=== PATIENT | female | born 1945 | race Caucasian/White ===

== ENCOUNTER 2020-07-05 13:49 | Outpatient (REF) | payer MEDICARE, SELFPAY | END 2020-07-05 13:50 | disposition home or self-care (01) | LOC: HO.LAB 13:49 | PROVIDERS: PCP Internal Medicine; Visit Provider Internal Medicine | DX: Z20.828 Contact with and (suspected) exposure to other viral communicable diseases (principal) | CPT/HCPCS: C9803; U0003 ==

== ENCOUNTER 2020-07-07 20:52 | Inpatient (IN) | payer MEDICARE, SELFPAY ==
--- NOTE | 2020-07-07 20:56 | CT_ITS ---
EXAMINATION: CT HEAD WITHOUT CONTRAST (STROKE PROTOCOL) CLINICAL INFORMATION: Stroke protocol. Altered mental status COMPARISON: CT head 07/11/2019 TECHNIQUE: Contiguous axial imaging was performed from the skull base to vertex without intravenous administration of contrast. This CT examination was performed using dose optimization techniques as appropriate, variously including the following: *Automated exposure control *Adjustment of mA and/or kV according to patient size (this includes techniques or standardized protocols for targeted exams where dose is matched to indication/reason for exam; i.e. extremities or head) *Use of iterative reconstruction technique DLP: 553 mGy-cm FINDINGS: Redemonstration of the low attenuating fluid in the white matter in the left parietal-occipital lobe unchanged since CAT scan of 2019. This does not cause midline shift. There is chronic atrophy with prominence of the ventricles and sulci as well as hypodensity the periventricular white matter chronic small vessel ischemic disease. Extra-axial meningioma given demonstrated in the left frontal parietal region measuring 1.4 cm. This is unchanged since CAT scan of 2019. There is a second meningioma faintly seen axial image 31 series 2 the left parietal area measuring about 4 mm. This is unchanged since 2019. No extra-axial fluid collection. Complete opacification of left sphenoid sinus. Mastoid air cells and middle ear cavities are normally aerated. CT/CT head for stroke IMPRESSION: 1. No acute abnormality. 2. Redemonstration of low attenuating fluid in the white matter track left parietal-occipital lobe unchanged since CAT scan of 02/05/2019. 3. No significant change of the 2 left-sided meningiomas since 02/05/2019. 4. Complete opacification of the left sphenoid sinus. This critical result was discussed with Yady Campos MD on 07/07/2020, 9:15 PM. It was ascertained that the content and urgency of the report was understood at the time of direct communication.
--- NOTE | 2020-07-07 20:58 | ED.WEAKNESS ---
HPI - Weakness General Chief complaint: Neuro Symptoms/Deficit Stated complaint: stroke alert Time Seen by Provider: 07/07/20 20:56 Source: family and EMS Mode of arrival: EMS History of Present Illness HPI Narrative: This is a 75-year-old female who is brought in as a stroke alert with last known well approximately this evening when family noted that patient became ?unresponsive? as per EMS and now is stating that patient is at ?baseline?. Please see more detailed course in that section. Otherwise, patient is a poor historian. Related Data Home Medications Medication Instructions Recorded Confirmed acetaminophen 650 mg PO Q6H PRN 07/07/20 07/07/20 atorvastatin 20 mg PO DAILY 07/07/20 07/07/20 codeine-guaifenesin 5 ml PO 07/07/20 Allergies Allergy/AdvReac Type Severity Reaction Status Date / Time Iodinated Contrast Media Allergy Unknown ANAPHYLAXIS Verified 07/07/20 21:12 [IV Dye, Iodine Containing] From Taxol Allergy Severe DIFFICULTY Uncoded 07/07/20 21:12 BREATHING From Benadryl Allergy Unknown AGITATION Uncoded 07/07/20 21:12 Review of Systems Review of Systems: Yes Unobtainable due to mental condition PMFSH Past Medical History Source: nursing notes reviewed Medical History Brain cancer Herniated disc High cholesterol HTN (hypertension) Lung cancer TIA (transient ischemic attack) Social History Social History Alcohol intake: never Smoking Status: Never smoker Use of substances other than those prescribed or required for medical reasons: No Advance Directives: No Advance Directives Information Provided: No Physical Exam Vital Signs: Vital Signs: Last Vital Signs Temp 98.9 F 07/08/20 00:00 Pulse 86 07/08/20 06:17 Resp 18 07/08/20 06:17 BP 131/54 L 07/08/20 06:17 Pulse Ox 97 07/08/20 06:17 Body Mass Index 19.8 VITAL SIGNS: Reviewed. GENERAL: Cachectic, chronically ill, in no acute distress. HEAD: Normocephalic/atraumatic, EYES: PERRLA, EOMI intact without pain, no nystagmus/pallor/icterus noted EARS: Ext canals without abnormality, TMs non-bulging and non-erythematous NOSE: Nares patent bilateral OROPHARYNX: no oral lesions noted, posterior pharynx clear and non-erythematous without noted tonsillar enlargement/erythema/exudates NECK: Supple, no adenopathy LUNGS: Normal breath sounds. No adventitious sounds or accessory muscle use. SpO2<> CARDIOVASCULAR: Regular rate and rhythm without noted murmurs, no JVD or lower extremity edema. ABDOMEN: Soft, non-tender, non-distended with bowel sounds. No rigidity. No guarding. No palpable masses or hernias noted MUSCULOSKELETAL: No tenderness, deformities, or effusions noted on gross inspection. EXTREMITIES: No cyanosis, clubbing or edema. SKIN: Inspection of the skin reveals no rashes, ulcerations, jaundice, pallor, or petechiae. NEUROLOGIC: Alert, please see NIH stroke scale. Rt arm drift and weakness at baseline, speech is slow but no dyarthria NIH Stroke Scale Internal: Other Level of Consciousness: Alert Level of Consciousness Questions: Answers neither question correctly Level of Consciousness Commands: Performs one task correctly Best Gaze: Partial gaze palsy Visual: No visual loss Facial Palsy: Normal Motor Arm (Right): Some effort against gravity Motor Arm (Left): Some effort against gravity Motor Leg (Right): Some effort against gravity Motor Leg (Left): Some effort against gravity Limb Ataxia: Absent Sensory: Normal Best Language: Mild to moderate aphasia Dysarthia: Normal Extinction and Inattention: No abnormality Score: 13 Course Course Course Narrative: This is a 75-year-old female with history and clinical presentation most concerning for possible seizure-like activity but will rule out infectious, anemia etiologies. Review of all investigations is negative for evidence of infection, anemia, but does show evidence of mild dehydration and therefore the decision was made to proceed with the Keppra as discussed with Neurology as well as provide a 500cc bolus of IVF . This case was discussed with inpatient hospitalist team who is agreeable for admission. Of note despite COVID-19 being negative there are concerning findings on the chest x-ray that will be followed up with a chest CT. On review of CT scan no evidence for the support infiltrates and the results were updated to the inpatient hospitalist team. Reevaluation(s) Reevaluation #1: Discussed CT noncontrast with Radiology at [facility] and they describe that there is nothing acute, there are chronic changes as described previously in 2019 with meningiomas and chronic edema that is unchanged. Time: 21:10 Reevaluation #2: I discussed the patient's condition further with the son, Kevin ([phone]), who states that at baseline patient has slow speech, slow to respond, and that they have had concerns about her being slumped over approximately 3 times over the past couple of days and that she has a significant history for lung CA as well as brain CA. Time: 21:12 Reevaluation #3: I discussed the patient with her daughter Devi ([phone]) and she states that patient has had 2 episodes over the past week and a half of an inability to ?hold herself up? and then she notes that tonight she was laying on her back and was not able to respond to the daughter and she states that that started at 4:00 p.m.. The daughter states that at approximately 8:00 p.m. she decided to move the patient to the bed and became concerned because the patient was not able to lift either 1 of her arms to place him around her. And she states her mother just appeared ?not there?. Time: 21:20 Additional Reevaluation(s): 2124: I spoke with Dr. Byrd who agrees that this does not sound like a stroke, but possibly seizure activity. Discussed with him ruling out infections or alternative etiologies and then if negative moving forward with Keppra(initial 500mg and then 250mg BID). He agrees with that plan. Patient to be admitted. MDM - Weakness Lab Data Result diagrams: 07/07/20 21:40 07/07/20 21:28 Labs: Lab Results 07/07/20 07/07/20 07/07/20 Range/Units 20:58 20:59 21:28 WBC (4.8-10.8) X10*3/uL RBC (4.20-5.50) X10*6/uL Hgb (12.0-16.0) g/dl Hct (37-47) % MCV (80-98) fL MCH (27.0-33.0) pg MCHC (31.0-35.0) g/dl RDW (11.0-16.0) % Plt Count (160-400) X10*3/uL MPV (9.4-12.3) fL Immature Gran % (Auto) (0.0-0.4) % Neut % (Auto) (45-73) % Lymph % (Auto) (20-40) % Hudson % (Auto) (2-11) % Eos % (Auto) (0-4) % Baso % (Auto) (0-2) % Lymph # (Auto) (1.2-4.9) X10*3/uL Hudson # (Auto) (0.1-1.2) X10*3/uL Eos # (Auto) (0.0-0.4) X10*3/uL Baso # (Auto) (0.0-0.2) X10*3/uL Abs Immat Gran (auto) (0.00-0.03) X10*3/uL Absolute Neuts (auto) (2.0-8.3) X10*3/uL Absolute Nucleated RBC (0.0-0.012) X10*3/uL Nucleated RBC % (auto) (0.0-0.2) /100WBC PT (10.8-13.0) SEC Whole Blood PT 11.3 (11.1-13.5) sec INR (0.9-1.1) Whole Blood INR 0.9 (0.9-1.1) APTT (24.1-38.0) SEC Sodium (135-145) mmol/L Potassium (3.3-5.1) mmol/l Chloride (96-108) mmol/L Carbon Dioxide (22-29) mmol/L Anion Gap (12-20) BUN (9-16) mg/dL Creatinine (0.5-1.4) mg/dL Estim Creat Clear Calc Estimated GFR POC Glucose 102 (60-115) mg/dL Random Glucose (60-115) mg/dL Lactic Acid (0.5-2.0) mmol/L Calcium (8.4-10.2) mg/dL Total Bilirubin (0.0-1.0) mg/dL AST (5-31) U/L ALT (0-31) U/L Alkaline Phosphatase (39-117) U/L Troponin I High Sens (<3.5-17.0) ng/L Total Protein (6.5-8.0) g/dL Albumin (3.5-5.0) g/dL TSH 0.29 L (0.32-4.0) mIU/mL Free T4 0.96 (0.71-1.85) ng/dL Urine Color Urine Appearance Urine pH (5.0-8.0) Ur Specific Hope (1.005-1.025) Urine Protein (NEG-TRACE) MG/DL Urine Glucose (UA) (NEG) MG/DL Urine Ketones (NEG) MG/DL Urine Blood (NEG) Urine Nitrite (NEG) Ur Leukocyte Esterase (NEG) COVID-19 (ROBERTO) (Negative) COVID-19 Clin Com 07/07/20 07/07/20 07/07/20 Range/Units 21:28 21:28 21:28 WBC (4.8-10.8) X10*3/uL RBC (4.20-5.50) X10*6/uL Hgb (12.0-16.0) g/dl Hct (37-47) % MCV (80-98) fL MCH (27.0-33.0) pg MCHC (31.0-35.0) g/dl RDW (11.0-16.0) % Plt Count (160-400) X10*3/uL MPV (9.4-12.3) fL Immature Gran % (Auto) (0.0-0.4) % Neut % (Auto) (45-73) % Lymph % (Auto) (20-40) % Hudson % (Auto) (2-11) % Eos % (Auto) (0-4) % Baso % (Auto) (0-2) % Lymph # (Auto) (1.2-4.9) X10*3/uL Hudson # (Auto) (0.1-1.2) X10*3/uL Eos # (Auto) (0.0-0.4) X10*3/uL Baso # (Auto) (0.0-0.2) X10*3/uL Abs Immat Gran (auto) (0.00-0.03) X10*3/uL Absolute Neuts (auto) (2.0-8.3) X10*3/uL Absolute Nucleated RBC (0.0-0.012) X10*3/uL Nucleated RBC % (auto) (0.0-0.2) /100WBC PT (10.8-13.0) SEC Whole Blood PT (11.1-13.5) sec INR (0.9-1.1) Whole Blood INR (0.9-1.1) APTT (24.1-38.0) SEC Sodium 140 (135-145) mmol/L Potassium 5.1 (3.3-5.1) mmol/l Chloride 103 (96-108) mmol/L Carbon Dioxide 28 (22-29) mmol/L Anion Gap 14 (12-20) BUN 24 H (9-16) mg/dL Creatinine 1.07 (0.5-1.4) mg/dL Estim Creat Clear Calc 41.1 Estimated GFR 50 POC Glucose (60-115) mg/dL Random Glucose 103 (60-115) mg/dL Lactic Acid 1.7 (0.5-2.0) mmol/L Calcium 9.3 (8.4-10.2) mg/dL Total Bilirubin 0.3 (0.0-1.0) mg/dL AST 20 (5-31) U/L ALT 18 (0-31) U/L Alkaline Phosphatase 99 (39-117) U/L Troponin I High Sens < 3.5 (<3.5-17.0) ng/L Total Protein 7.5 (6.5-8.0) g/dL Albumin 4.0 (3.5-5.0) g/dL TSH (0.32-4.0) mIU/mL Free T4 (0.71-1.85) ng/dL Urine Color Urine Appearance Urine pH (5.0-8.0) Ur Specific Hope (1.005-1.025) Urine Protein (NEG-TRACE) MG/DL Urine Glucose (UA) (NEG) MG/DL Urine Ketones (NEG) MG/DL Urine Blood (NEG) Urine Nitrite (NEG) Ur Leukocyte Esterase (NEG) COVID-19 (ROBERTO) (Negative) COVID-19 Clin Com 07/07/20 07/07/20 07/07/20 Range/Units 21:28 21:40 21:47 WBC 10.6 (4.8-10.8) X10*3/uL RBC 4.42 (4.20-5.50) X10*6/uL Hgb 14.0 (12.0-16.0) g/dl Hct 44.0 (37-47) % MCV 99.5 H (80-98) fL MCH 31.7 (27.0-33.0) pg MCHC 31.8 (31.0-35.0) g/dl RDW 13.0 (11.0-16.0) % Plt Count 387 (160-400) X10*3/uL MPV 10.0 (9.4-12.3) fL Immature Gran % (Auto) 0.6 H (0.0-0.4) % Neut % (Auto) 79.8 H (45-73) % Lymph % (Auto) 9.6 L (20-40) % Hudson % (Auto) 8.8 (2-11) % Eos % (Auto) 0.8 (0-4) % Baso % (Auto) 0.4 (0-2) % Lymph # (Auto) 1.0 L (1.2-4.9) X10*3/uL Hudson # (Auto) 0.9 (0.1-1.2) X10*3/uL Eos # (Auto) 0.1 (0.0-0.4) X10*3/uL Baso # (Auto) 0.0 (0.0-0.2) X10*3/uL Abs Immat Gran (auto) 0.06 H (0.00-0.03) X10*3/uL Absolute Neuts (auto) 8.5 H (2.0-8.3) X10*3/uL Absolute Nucleated RBC 0.000 (0.0-0.012) X10*3/uL Nucleated RBC % (auto) 0.0 (0.0-0.2) /100WBC PT 12.1 (10.8-13.0) SEC Whole Blood PT (11.1-13.5) sec INR 1.0 (0.9-1.1) Whole Blood INR (0.9-1.1) APTT 34.4 (24.1-38.0) SEC Sodium (135-145) mmol/L Potassium (3.3-5.1) mmol/l Chloride (96-108) mmol/L Carbon Dioxide (22-29) mmol/L Anion Gap (12-20) BUN (9-16) mg/dL Creatinine (0.5-1.4) mg/dL Estim Creat Clear Calc Estimated GFR POC Glucose (60-115) mg/dL Random Glucose (60-115) mg/dL Lactic Acid (0.5-2.0) mmol/L Calcium (8.4-10.2) mg/dL Total Bilirubin (0.0-1.0) mg/dL AST (5-31) U/L ALT (0-31) U/L Alkaline Phosphatase (39-117) U/L Troponin I High Sens (<3.5-17.0) ng/L Total Protein (6.5-8.0) g/dL Albumin (3.5-5.0) g/dL TSH (0.32-4.0) mIU/mL Free T4 (0.71-1.85) ng/dL Urine Color YELLOW Urine Appearance CLEAR Urine pH 5.5 (5.0-8.0) Ur Specific Hope >= 1.030 H (1.005-1.025) Urine Protein NEG (NEG-TRACE) MG/DL Urine Glucose (UA) NEG (NEG) MG/DL Urine Ketones 5 (NEG) MG/DL Urine Blood NEG (NEG) Urine Nitrite NEG (NEG) Ur Leukocyte Esterase NEG (NEG) COVID-19 (ROBERTO) (Negative) COVID-19 Clin Com 07/07/20 Range/Units 21:47 WBC (4.8-10.8) X10*3/uL RBC (4.20-5.50) X10*6/uL Hgb (12.0-16.0) g/dl Hct (37-47) % MCV (80-98) fL MCH (27.0-33.0) pg MCHC (31.0-35.0) g/dl RDW (11.0-16.0) % Plt Count (160-400) X10*3/uL MPV (9.4-12.3) fL Immature Gran % (Auto) (0.0-0.4) % Neut % (Auto) (45-73) % Lymph % (Auto) (20-40) % Hudson % (Auto) (2-11) % Eos % (Auto) (0-4) % Baso % (Auto) (0-2) % Lymph # (Auto) (1.2-4.9) X10*3/uL Hudson # (Auto) (0.1-1.2) X10*3/uL Eos # (Auto) (0.0-0.4) X10*3/uL Baso # (Auto) (0.0-0.2) X10*3/uL Abs Immat Gran (auto) (0.00-0.03) X10*3/uL Absolute Neuts (auto) (2.0-8.3) X10*3/uL Absolute Nucleated RBC (0.0-0.012) X10*3/uL Nucleated RBC % (auto) (0.0-0.2) /100WBC PT (10.8-13.0) SEC Whole Blood PT (11.1-13.5) sec INR (0.9-1.1) Whole Blood INR (0.9-1.1) APTT (24.1-38.0) SEC Sodium (135-145) mmol/L Potassium (3.3-5.1) mmol/l Chloride (96-108) mmol/L Carbon Dioxide (22-29) mmol/L Anion Gap (12-20) BUN (9-16) mg/dL Creatinine (0.5-1.4) mg/dL Estim Creat Clear Calc Estimated GFR POC Glucose (60-115) mg/dL Random Glucose (60-115) mg/dL Lactic Acid (0.5-2.0) mmol/L Calcium (8.4-10.2) mg/dL Total Bilirubin (0.0-1.0) mg/dL AST (5-31) U/L ALT (0-31) U/L Alkaline Phosphatase (39-117) U/L Troponin I High Sens (<3.5-17.0) ng/L Total Protein (6.5-8.0) g/dL Albumin (3.5-5.0) g/dL TSH (0.32-4.0) mIU/mL Free T4 (0.71-1.85) ng/dL Urine Color Urine Appearance Urine pH (5.0-8.0) Ur Specific Hope (1.005-1.025) Urine Protein (NEG-TRACE) MG/DL Urine Glucose (UA) (NEG) MG/DL Urine Ketones (NEG) MG/DL Urine Blood (NEG) Urine Nitrite (NEG) Ur Leukocyte Esterase (NEG) COVID-19 (ROBERTO) Negative (Negative) COVID-19 Clin Com See Note ECG Data Attestation: I personally reviewed and interpreted this ECG as follows: Prior ECG tracings: available for review (07/11/2019 no acute changes in comparison) Interpretation: Sinus tachycardia, HR-113, no evidence of acute ischemia, LBB unchanged, GA/QTC are within normal limits. Discharge Plan Discharge Clinical Impression: Neurological deficit, transient, Seizure Patient Disposition: Admitted As Inpatient
[2020-07-07 21:03] LABS: Prothrombin Time Whole Bld POC 11.3 sec (11.1-13.5); ~PT, ~INR - Anti Coag Clinic 0.9 (0.9-1.1)
[2020-07-07 21:03] LABS: Glucose, Whole Blood 102 mg/dL (60-115)
[2020-07-07 21:07] VITALS: BP 135/46; PULSE 116; RESP 17; TEMP 36.7; O2SAT 95; BMI 19.8
--- NOTE | 2020-07-07 21:19 | ECG_ITS ---
Test Reason : ?STROKE Blood Pressure : / mmHG Vent. Rate : 113 BPM Atrial Rate : 113 BPM P-R Int : 166 ms QRS Dur : 124 ms QT Int : 344 ms P-R-T Axes : 048 005 122 degrees QTc Int : 471 ms Sinus tachycardia Possible Left atrial enlargement Left bundle branch block Abnormal ECG When compared with ECG of 11-JUL-2019 23:44, No significant changes seen Referred By: Yady Campos Electronically Signed By:ARCHANA JOYA
--- NOTE | 2020-07-07 21:19 | XR_ITS ---
EXAMINATION: XR CHEST CLINICAL INFORMATION: Cough. COMPARISON: Multiple previous chest imaging studies with the last chest x-ray dated 07/20/2019. Chest CT of 11/05/2016. TECHNIQUE: Frontal view of the chest was obtained. FINDINGS: Cardiomediastinal silhouette is unchanged. The lungs are mildly hypoexpanded with bronchovascular crowding. Stable mild elevation of the right hemidiaphragm. Multifocal scattered streaky and ground-glass opacities are suspected. No dense lobar consolidation. No evidence of significant pleural effusions, pulmonary edema or pneumothorax. Regional skeleton is intact. Vertebroplasty changes in the mid thoracic vertebrae are again noted. XR/XR chest 1V IMPRESSION: Mildly hypoexpanded lungs with bronchovascular crowding. Scattered streaky and faint ground-glass opacities bilaterally are suspected. No dense focal consolidation. Recommend clinical correlation. Recommend close follow up imaging.
--- NOTE | 2020-07-07 21:28 | PC.NURSE ---
PT BIBA STROKE ALERT, PT S/F IN BED, RR EVEN UNLABORED, SKIN WPD, ALERT. PT OFFERS NO ACUTE COMPLAINTS, PER EMS PT'S FAMILY REPORTED BRIEF EPISODE WHERE PT WAS UNRESPONSIVE AND D/T HX OF TIA PT CALLED EMS. PT PRESENTS TO ED W/ NO FOCAL DEFICITS, PROVIDER TO STRETCHER AND PT SENT TO CT. PT NSR ON TELE, VSS, NAD, AWAITING LAB RESULTS.
[2020-07-07 21:47] LABS: Basophils Percent Auto 0.4 % (0-2); Eosinophils Absolute Auto 0.1 X10*3/uL (0.0-0.4); Eosinophils Percent Auto 0.8 % (0-4); Imm Gran Abs Auto 0.06 X10*3/uL (0.00-0.03); Imm Gran Pct Auto 0.6 % (0.0-0.4); Lymphocytes Percent Auto 9.6 % (20-40); MANUAL DIFF FLAG NO; Mean Corpuscular HGB Conc 31.8 g/dl (31.0-35.0); Mean Corpuscular Hemoglobin 31.7 pg (27.0-33.0); Mean Corpuscular Volume 99.5 fL (80-98); Monocytes Absolute Auto 0.9 X10*3/uL (0.1-1.2); Monocytes Percent Auto 8.8 % (2-11); Neutrophils Absolute Auto 8.5 X10*3/uL (2.0-8.3); Neutrophils Percent Auto 79.8 % (45-73); Platelet Count 387 X10*3/uL (160-400); Red Blood Count 4.42 X10*6/uL (4.20-5.50); White Blood Count 10.6 X10*3/uL (4.8-10.8)
[2020-07-07 21:55] LABS: Glucose Urine UA NEG (NEG); Leukocyte Esterase Urine NEG (NEG); Nitrite Urine NEG (NEG); PH 5.5 (5.0-8.0); Specific Gravity - Urine >= 1.030 (1.005-1.025); Urine Blood NEG (NEG); Urine Ketones 5 MG/DL (NEG); Urine Protein NEG (NEG-TRACE)
[2020-07-07 21:58] LABS: Prothrombin Time 12.1 SEC (10.8-13.0)
[2020-07-07 22:01] LABS: Partial Thromboplastin Time 34.4 SEC (24.1-38.0)
[2020-07-07 22:02] LABS: Lactic Acid 1.7 mmol/L (0.5-2.0)
[2020-07-07 22:03] LABS: Color Urine YELLOW
[2020-07-07 22:04] LABS: Appearance Urine CLEAR
[2020-07-07 22:06] LABS: Alanine Aminotransferase 18 U/L (0-31); Alkaline Phosphatase 99 U/L (39-117); Anion Gap 14 (12-20); Aspartate Amino Transferase 20 U/L (5-31); Bilirubin Total 0.3 mg/dL (0.0-1.0); Blood Urea Nitrogen 24 mg/dL (9-16); Calcium 9.3 mg/dL (8.4-10.2); Carbon Dioxide 28 mmol/L (22-29); Chloride 103 mmol/L (96-108); Creatinine Clr Calc Pharmacy 41.1; Estimated Glomerular Filt Rate 50; Glucose Random 103 mg/dL (60-115); Potassium 5.1 mmol/l (3.3-5.1); Sodium 140 mmol/L (135-145); Total Protein 7.5 g/dL (6.5-8.0)
[2020-07-07 22:09] LABS: Troponin-I High Sensitivity < 3.5 ng/L (<3.5-17.0)
[2020-07-07 22:09] LABS: COVID-19 Test Negative (Negative); IDNOW Serial# 9DD0AD1C
[2020-07-07] MEDS: 0.9 % Sodium Chloride 500 ML IV (22:18)
[2020-07-07 22:25] LABS: TSH reflex Free T4 0.29 mIU/mL (0.32-4.0)
[2020-07-07 23:02] LABS: Free T4 (Free Thyroxine) 0.96 ng/dL (0.71-1.85)
[2020-07-07 23:03] VITALS: BP 156/72; PULSE 100; RESP 20; TEMP 36.6; O2SAT 94
--- NOTE | 2020-07-07 23:44 | CT_ITS ---
EXAMINATION: CT CHEST WITHOUT CONTRAST CLINICAL INFORMATION: Cough. COMPARISON: Same day chest radiograph. Chest CT from 11/05/2016. TECHNIQUE: Contiguous axial thin section helical images of the chest were performed without contrast. The data set was reformatted in the coronal and sagittal planes and reviewed on an independent workstation. Evaluation is limited secondary to patient motion artifact and the lack of IV contrast. DLP: 305 mGy-cm. FINDINGS: The heart is of normal size. There is no pericardial effusion. There is neither mediastinal, hilar nor axillary lymphadenopathy. There are no chest wall masses. Review of lung windows demonstrates that there are neither pleural effusions nor pneumothoraces. Again identified are manifestations of emphysema. There is extensive opacification within the right perihilar region, slightly more prominent than on the prior exam. There is a small focus of ground glass opacification within the inferior segment of the lingula. Within the left upper lobe on image 80/448, there is a 4 mm nodule. There is a [id number] sized hiatal hernia. Images of the upper abdomen demonstrate that the liver is of normal size and attenuation without focal lesions. Normal adrenal glands are identified. Bone windows: Neither sclerotic nor lytic bone lesions are identified. The patient is status post kyphoplasty with material present at T8. There is a compression fracture at T11 which has progressed since the prior exam. CT/CT chest wo con IMPRESSION: Significantly limited exam due to patient motion artifact and the lack of IV contrast. Small focus of groundglass opacification within the inferior segment of the lingula. Extensive right perihilar opacification, slightly progressed from the prior exam of October 2016. The appearance is nonspecific and may be posttreatment in this patient with reported underlying lung cancer. However, recurrence or progression in disease cannot be excluded. Consider correlation with PET/CT for further tissue characterization. Alternatively, the appearance may be claims representative of superimposed infection or inflammation. Emphysema. Automated exposure control (Care Dose) Adjustment of the mA and/or kv according to patient size (this includes techniques or standardized protocols for targeted exams where dose is matched to indication / reason for exam; i.e. extremities or head).
[2020-07-08] VITALS (10 sets, daily range): BP systolic 109–156; BP diastolic 54–75; PULSE 81–98; RESP 14–22; TEMP 35.9–37.2; O2SAT 95–100
--- NOTE | 2020-07-08 00:23 | PC.NURSE ---
RN ATTEMPTED SWALLOW EVAL- PT DID NO TOLERATE AT ALL. FAILED SWALLOW EVAL. HOSPITALIST MADE AWARE. PT O2 SAT DROPPING DOWN TO 91-93% PT PLACED ON 2L O2 VIA NC
--- NOTE | 2020-07-08 05:33 | P.HPHOSP_ITS ---
History of Present Illness Date of Service: 07/07/20 Chief Complaint: AMS This is a 75-year-old female with past medical history of brain meningioma was, herniated disc, high cholesterol, hypertension, lung cancer, TIA who presents to the hospital after her family have noticed for the past 1 to 2 weeks episodes of nonresponsiveness, she would be slumped over for few minutes not responding, not answering the questions. Today she did the same thing, became unresponsive not follow any commands, would not move upper body. Her family noticed that her speech son is at baseline and has chronic right-sided deficits. Patient only says yes or no to my questions and does not really give good history. Therefore history is mostly obtained from ED physician. On arrival to the ED patient's heart rate is 116, temp of 98.0?, blood pressure 135/36, satting 95% on room air Labs are significant for WBC count 10.6, hemoglobin of 14, hematocrit of 44%, PT of 12.1, INR of 1.0, sodium 130, potassium 5.1, BUN of 24, creatinine of 1.07, TSH of 0.29, negative UA, COVID-[address] shows significant limited exam due to patient's motion artifact and lack of IV but small focus of ground-glass opacification within the inferior segment of the lingula Head CT shows no acute abnormality, redemonstration of low attenuating fluid in the white matter tract left parietal occipital lobe unchanged since CT scan of 2019, she has 2 left-sided meningioma since 2019 I am unable to get complete past medical history from patient as she is not really answering my questions appropriately Past medical history: Meningiomas, herniated disc, high cholesterol, hypertension, lung cancer, TIA Social history appears to be living with her family, no reported tobacco alcohol or illicit drugs Review of Systems Review of Systems: Yes Unobtainable due to mental status [facility] Medical History Brain cancer Herniated disc High cholesterol HTN (hypertension) Lung cancer TIA (transient ischemic attack) Social History Alcohol intake: never Smoking Status: Never smoker Use of substances other than those prescribed or required for medical reasons: No Advance Directives: No Advance Directives Information Provided: No Meds Allergies Allergy/AdvReac Type Severity Reaction Status Date / Time Iodinated Contrast Media Allergy Unknown ANAPHYLAXIS Verified 07/07/20 21:12 [IV Dye, Iodine Containing] From Taxol Allergy Severe DIFFICULTY Uncoded 07/07/20 21:12 BREATHING From Benadryl Allergy Unknown AGITATION Uncoded 07/07/20 21:12 Home Medications Medication Instructions Recorded Confirmed Type acetaminophen 650 mg PO Q6H PRN 07/07/20 07/07/20 History atorvastatin 20 mg PO DAILY 07/07/20 07/07/20 History codeine-guaifenesin 5 ml PO 07/07/20 History Physical Exam Vital Signs and Narrative: Vital Signs: Last Vital Signs Temp 98.9 F 07/08/20 00:00 Pulse 83 07/08/20 04:00 Resp 16 07/08/20 04:00 BP 129/55 L 07/08/20 04:00 Pulse Ox 97 07/08/20 04:00 Body Mass Index 19.8 Const: Other: Not oriented General: cooperative and no acute distress Eyes: General: appearance normal, both eyes and all related structures Resp: Effort & Inspection: normal respiratory effort Auscultation: clear to auscultation bilaterally Cardio: Rate: regular rate Rhythm: regular rhythm GI: Palpation (GI): Soft to palpation Auscultation: normal bowel sounds Skin: General skin exam: no rashes or lesions noted Neuro: Cognition (Neuro): normal cognition Extrem: General: Yes normal to inspection and Yes no pedal edema Results Labs CBC and Chem 7: 07/07/20 21:40 07/07/20 21:28 Labs: Laboratory Results - last 24 hr 07/07/20 07/07/20 07/07/20 20:58 20:59 21:28 MCV MCH MCHC RDW Plt Count MPV Immature Gran % (Auto) Neut % (Auto) Lymph % (Auto) Morrison % (Auto) Eos % (Auto) Baso % (Auto) Lymph # (Auto) Morrison # (Auto) Eos # (Auto) Baso # (Auto) Abs Immat Gran (auto) Absolute Neuts (auto) Absolute Nucleated RBC Nucleated RBC % (auto) PT Whole Blood PT 11.3 INR Whole Blood INR 0.9 APTT Anion Gap Estim Creat Clear Calc Estimated GFR POC Glucose 102 Random Glucose Lactic Acid Calcium Total Bilirubin AST ALT Alkaline Phosphatase Troponin I High Sens Total Protein Albumin TSH 0.29 L Free T4 0.96 Urine Color Urine Appearance Urine pH Ur Specific [place] Urine Protein Urine Glucose (UA) Urine Ketones Urine Blood Urine Nitrite Ur Leukocyte Esterase COVID-19 ([facility]) COVID-19 [employer] 07/07/20 07/07/20 07/07/20 21:28 21:28 21:28 MCV MCH MCHC RDW Plt Count MPV Immature Gran % (Auto) Neut % (Auto) Lymph % (Auto) Morrison % (Auto) Eos % (Auto) Baso % (Auto) Lymph # (Auto) Morrison # (Auto) Eos # (Auto) Baso # (Auto) Abs Immat Gran (auto) Absolute Neuts (auto) Absolute Nucleated RBC Nucleated RBC % (auto) PT Whole Blood PT INR Whole Blood INR APTT Anion Gap 14 Estim Creat Clear Calc 41.1 Estimated GFR 50 POC Glucose Random Glucose 103 Lactic Acid 1.7 Calcium 9.3 Total Bilirubin 0.3 AST 20 ALT 18 Alkaline Phosphatase 99 Troponin I High Sens < 3.5 Total Protein 7.5 Albumin 4.0 TSH Free T4 Urine Color Urine Appearance Urine pH Ur Specific [place] Urine Protein Urine Glucose (UA) Urine Ketones Urine Blood Urine Nitrite Ur Leukocyte Esterase COVID-19 ([facility]) COVID-19 [employer] 07/07/20 07/07/20 07/07/20 21:28 21:40 21:47 MCV 99.5 H MCH 31.7 MCHC 31.8 RDW 13.0 Plt Count 387 MPV 10.0 Immature Gran % (Auto) 0.6 H Neut % (Auto) 79.8 H Lymph % (Auto) 9.6 L Morrison % (Auto) 8.8 Eos % (Auto) 0.8 Baso % (Auto) 0.4 Lymph # (Auto) 1.0 L Morrison # (Auto) 0.9 Eos # (Auto) 0.1 Baso # (Auto) 0.0 Abs Immat Gran (auto) 0.06 H Absolute Neuts (auto) 8.5 H Absolute Nucleated RBC 0.000 Nucleated RBC % (auto) 0.0 PT 12.1 Whole Blood PT INR 1.0 Whole Blood INR APTT 34.4 Anion Gap Estim Creat Clear Calc Estimated GFR POC Glucose Random Glucose Lactic Acid Calcium Total Bilirubin AST ALT Alkaline Phosphatase Troponin I High Sens Total Protein Albumin TSH Free T4 Urine Color YELLOW Urine Appearance CLEAR Urine pH 5.5 Ur Specific [place] >= 1.030 H Urine Protein NEG Urine Glucose (UA) NEG Urine Ketones 5 Urine Blood NEG Urine Nitrite NEG Ur Leukocyte Esterase NEG COVID-19 ([facility]) COVID-19 Clin Com 07/07/20 21:47 MCV MCH MCHC RDW Plt Count MPV Immature Gran % (Auto) Neut % (Auto) Lymph % (Auto) Morrison % (Auto) Eos % (Auto) Baso % (Auto) Lymph # (Auto) Morrison # (Auto) Eos # (Auto) Baso # (Auto) Abs Immat Gran (auto) Absolute Neuts (auto) Absolute Nucleated RBC Nucleated RBC % (auto) PT Whole Blood PT INR Whole Blood INR APTT Anion Gap Estim Creat Clear Calc Estimated GFR POC Glucose Random Glucose Lactic Acid Calcium Total Bilirubin AST ALT Alkaline Phosphatase Troponin I High Sens Total Protein Albumin TSH Free T4 Urine Color Urine Appearance Urine pH Ur Specific [place] Urine Protein Urine Glucose (UA) Urine Ketones Urine Blood Urine Nitrite Ur Leukocyte Esterase COVID-19 ([facility]) Negative COVID-19 Clin Com See Note Imaging Radiologist's Impressions: Impressions Head CT 07/07/20 20:56 IMPRESSION: 1. No acute abnormality. 2. Redemonstration of low attenuating fluid in the white matter track left parietal-occipital lobe unchanged since CAT scan of 02/05/2019. 3. No significant change of the 2 left-sided meningiomas since 02/05/2019. 4. Complete opacification of the left sphenoid sinus. This critical result was discussed with Yady Campos MD on 07/07/2020, 9:15 PM. It was ascertained that the content and urgency of the report was understood at the time of direct communication. Chest X-Ray 07/07/20 21:19 IMPRESSION: Mildly hypoexpanded lungs with bronchovascular crowding. Scattered streaky and faint ground-glass opacities bilaterally are suspected. No dense focal consolidation. Recommend clinical correlation. Recommend close follow up imaging. Chest CT 07/07/20 23:44 IMPRESSION: Significantly limited exam due to patient motion artifact and the lack of IV contrast. Small focus of groundglass opacification within the inferior segment of the lingula. Extensive right perihilar opacification, slightly progressed from the prior exam of October 2016. The appearance is nonspecific and may be posttreatment in this patient with reported underlying lung cancer. However, recurrence or progression in disease cannot be excluded. Consider correlation with PET/CT for further tissue characterization. Alternatively, the appearance may be medical office representative of superimposed infection or inflammation. Emphysema. Automated exposure control (Care Dose) Adjustment of the mA and/or kv according to patient size (this includes techniques or standardized protocols for targeted exams where dose is matched to indication / reason for exam; i.e. extremities or head). Assessment and Plan (1) Seizure: Status: Acute (2) AMS (altered mental status): Status: Acute This is a 75-year-old female who presents to the hospital with reported episodes of unresponsiveness possibly secondary to TIA for the past 1-2 weeks. Patient has a history of meningioma as well as lung cancer. # altered mentation - although differentials include TIA patient's episodes of unresponsiveness than returning to her baseline appear to be mostly related to seizure-like activity - given her history of meningiomas and edema in the brain this is most likely to be seizure - neurologist consulted recommended starting patient on Keppra 250 b.i.d.. Patient received a loading dose of 500 in the ED - neurology is on the case and will see patient in a.m. # hyperlipidemia: Continue atorvastatin # ground-glass opacity on CT chest - patient has no cough, afebrile, no leukocytosis test as, no evidence of infection - not requiring any oxygen - therefore I will not start her on antibiotics - monitor for any changes in respiratory status DVT prophylaxi: Heparin subQ
--- NOTE | 2020-07-08 06:48 | PC.NURSE ---
PT ADMITTED PT BOARDING IN THE ED. HAS METASTATIC COLON CA TO THE LIVER AND BRAIN. INCREASED AMS, ?SEIZURE AT HOME. PT A/O X 1. AWAITING BED PLACEMENT.
[2020-07-08] MEDS: levETIRAcetam 250 MG TABLET PO ×2 (11:07→22:24)
[2020-07-08] MEDS: Atorvastatin Calcium 20 MG TABLET PO (11:07)
--- NOTE | 2020-07-08 11:18 | PC.NURSE ---
PT'S DAUGHTER THOM AVILES, DAUGHTER WAS UPDATED ON PT'S STATUS.
--- NOTE | 2020-07-08 11:25 | PC.NURSE ---
PT DAUGHTER PHONE # [phone] (THOM AVILES).
--- NOTE | 2020-07-08 11:29 | PC.NURSE ---
pt is a/o x 2, pt did not know the year. pt passed swallow test/eval and am meds given. md aware.
--- NOTE | 2020-07-08 14:20 | PC.NURSE ---
pt's daughter russell (hcp and poa, (h) and cell [phone][place] [facility] [place]
--- NOTE | 2020-07-08 16:07 | PC.NURSE ---
Antonina, daughter and hcp/poa at [phone] or [phone], macie, daughter, at [phone]
--- NOTE | 2020-07-08 16:45 | PC.NURSE ---
attempt to call report, awaiting call back
[2020-07-08] MEDS: Heparin Sodium,Porcine 5,000 UNIT/ML VIAL 5000 UNIT SUBCUT (17:35)
[2020-07-08] MEDS: 0.9 % Sodium Chloride Flush 3 ML SYRINGE IVFLUSH ×2 (17:35→22:24)
[2020-07-08 19:13] LABS: Basophils Percent Auto 0.2 % (0-2); Eosinophils Percent Auto 0.2 % (0-4); Hematocrit 44.7 % (37-47); Hemoglobin 14.5 g/dl (12.0-16.0); Imm Gran Abs Auto 0.05 X10*3/uL (0.00-0.03); Imm Gran Pct Auto 0.5 % (0.0-0.4); Lymphocytes Absolute Auto 0.6 X10*3/uL (1.2-4.9); Lymphocytes Percent Auto 5.6 % (20-40); MANUAL DIFF FLAG SCAN; Mean Corpuscular HGB Conc 32.4 g/dl (31.0-35.0); Mean Corpuscular Hemoglobin 31.8 pg (27.0-33.0); Mean Platelet Volume 10.4 fL (9.4-12.3); Monocytes Absolute Auto 0.8 X10*3/uL (0.1-1.2); Monocytes Percent Auto 7.8 % (2-11); Neutrophils Absolute Auto 8.7 X10*3/uL (2.0-8.3); Neutrophils Percent Auto 85.7 % (45-73); Platelet Count 388 X10*3/uL (160-400); Red Blood Count 4.56 X10*6/uL (4.20-5.50); Red Cell Distribution Width 12.8 % (11.0-16.0); SCAN SMEAR FLAG 1; White Blood Count 10.1 X10*3/uL (4.8-10.8)
[2020-07-08 19:38] LABS: Anion Gap 16 (12-20); Blood Urea Nitrogen 14 mg/dL (9-16); Calcium 9.2 mg/dL (8.4-10.2); Carbon Dioxide 28 mmol/L (22-29); Chloride 96 mmol/L (96-108); Creatinine Clr Calc Pharmacy 48.3; Estimated Glomerular Filt Rate 60; Glucose Random 161 mg/dL (60-115); Potassium 4.7 mmol/l (3.3-5.1); Sodium 135 mmol/L (135-145)
[2020-07-08 20:26] LABS: SLIDE REVIEW VERIFIED
[2020-07-09 03:25] VITALS: BP 127/70; PULSE 85; RESP 16; TEMP 36.5; O2SAT 94
[2020-07-09] MEDS: Heparin Sodium,Porcine 5,000 UNIT/ML VIAL 5000 UNIT SUBCUT (05:23)
[2020-07-09 07:00] LABS: Anion Gap 16 (12-20); Blood Urea Nitrogen 14 mg/dL (9-16); Calcium 8.8 mg/dL (8.4-10.2); Carbon Dioxide 26 mmol/L (22-29); Chloride 98 mmol/L (96-108); Creatinine Clr Calc Pharmacy 61.9; Estimated Glomerular Filt Rate > 60; Glucose Random 90 mg/dL (60-115); Potassium 4.5 mmol/l (3.3-5.1); Sodium 135 mmol/L (135-145)
[2020-07-09 07:21] VITALS: BP 114/61; PULSE 95; RESP 20; TEMP 36.4; O2SAT 94
--- NOTE | 2020-07-09 07:54 | W.MHC.ACPN ---
Advanced Care Planning Note Advanced Care Planning Note Discussed with: family member(s) and surrogate Time spent (in minutes): 23 Narrative: I had a chance to meet in person with Antonina the daughter and HCP or the patient yesterday and spoke with her over the phone again today. We discussed the patient current presentation to the hospital with altered mentation and episodes of decrease responsiveness. Concern about seizure activity requiring further evaluation and Neurology input. We did also discuss goals of care and discharge plan. The care proxy would prefer the patient be discharged back home as she has 24 hour services. They are not interesting in any her awake workup or procedures. They would prefer no with going on exactly and to the workup needed for that including MRI and EEG. Discussing her code status a most form was signed at the decision was made to change the patient's status to DNR DNI Problems Discussed (1) Seizure: (2) AMS (altered mental status): (3) Advanced dementia: (4) Physical deconditioning:
[2020-07-09] MEDS: 0.9 % Sodium Chloride Flush 3 ML SYRINGE IVFLUSH (08:50)
[2020-07-09] MEDS: levETIRAcetam 250 MG TABLET PO (08:52)
[2020-07-09] MEDS: Atorvastatin Calcium 20 MG TABLET PO (09:01)
--- NOTE | 2020-07-09 09:35 | P.CNNE_ITS ---
History of Present Illness Data of Consult Service Date: 07/09/20 Primary Care Provider: Unknown Physician 75 years old woman I was asked to see for possible seizure. She was unable to provide any history stating that she did not know why she was here and what had happened. Apparently she had underlying diagnosis of meningioma and was having multiple episodes of either unresponsiveness or change in mental status. She was brought to hospital after 1 of those brief episodes. There was no obvious focal arm or leg weakness other than generalized weakness. No convulsion was noted. Review of Systems Review of Systems: She was unable to provide answers to review of system questions [facility] Past Medical History Medical History Brain cancer Herniated disc High cholesterol HTN (hypertension) Lung cancer TIA (transient ischemic attack) Social History Social History Household Members: Family Housing: House Alcohol intake: never Smoking Status: Never smoker Use of substances other than those prescribed or required for medical reasons: No Currently Displaying Signs/Symptoms of Drug Intoxication Withdrawal: No Have you been hit, kicked, punched, or otherwise hurt by someone within the past year? If so, by whom?: No Do you feel safe in your current relationship?: No Current Relationship Is there a partner from a previous relationship who is making you feel unsafe now?: No Are you made to feel afraid or neglected: No Advance Directives: No Advance Directives Information Provided: No Do you have thoughts of harming others: None Do you have a plan to hurt others: No Plan Recently lost weight without trying: Unsure Meds Allergies Allergy/AdvReac Type Severity Reaction Status Date / Time Iodinated Contrast Media Allergy Unknown ANAPHYLAXIS Verified 07/07/20 21:12 [IV Dye, Iodine Containing] From Taxol Allergy Severe DIFFICULTY Uncoded 07/07/20 21:12 BREATHING From Benadryl Allergy Unknown AGITATION Uncoded 07/07/20 21:12 Home Medications Medication Instructions Recorded Confirmed Type acetaminophen 650 mg PO Q6H PRN 07/07/20 07/07/20 History atorvastatin 20 mg PO DAILY 07/07/20 07/07/20 History codeine-guaifenesin 5 ml PO 07/07/20 History Physical Exam Vital Signs: Vital Signs: Last Vital Signs Temp 97.6 F 07/09/20 07:21 Pulse 95 07/09/20 07:21 Resp 20 07/09/20 07:21 BP 114/61 07/09/20 07:21 Pulse Ox 94 07/09/20 07:21 Body Mass Index 19.8 Somewhat groggy but able to open eyes make an eye contact and follow simple commands. She was able to answer simple questions. She was not in distress. She did not know what had happened and why she was here. Pupils were equal and reactive to light. This seems to be left visual defect at least partial. Face was symmetrical. There was no definite focal arm or leg weakness no she barely could lift her arms and legs against gravity. There was mild tremor in upper extremities. Deep tendon reflexes were absent with flexor plantars. Results Labs CBC & Chem 7: 07/08/20 18:49 07/09/20 05:39 Labs: Short CBC 07/08/20 Range/Units 18:49 WBC 10.1 (4.8-10.8) X10*3/uL Hgb 14.5 (12.0-16.0) g/dl Hct 44.7 (37-47) % Plt Count 388 (160-400) X10*3/uL BMP 07/08/20 07/09/20 18:49 05:39 Sodium 135 135 Potassium 4.7 4.5 Chloride 96 98 Carbon Dioxide 28 26 BUN 14 14 Creatinine 0.91 0.71 Calcium 9.2 8[address] revealed extensive area of hypodensity in left parieto- occipital temporal region and left frontal last extra-axial mass probably meningioma and moderate cerebral atrophy. Assessment and Plan (1) Seizure: Status: Acute Overall clinical impression of presentation was of seizure disorder. At this time my recommendation is to cover her with levetiracetam 500 mg twice a day. She has significant pathology in her brain that could cause seizures. Nature of pathology is not completely clear. An MRI of brain with and without contrast can help to define it further. An EEG is also recommended
--- NOTE | 2020-07-09 10:18 | MHC.CM.PN ---
spoke with pts who explins that pt has 24n hr private help at home dc plan is for pt to return home whendcd whcih maybe today
--- NOTE | 2020-07-09 10:36 | MHC.SLORD ---
Per RN, patient tolerated pills and breakfast without difficulty, and will be discharged home with comfort care. CONTROL SYSTEMS DESIGNER contacted MD via [facility] Message. Patient passed nursing swallow screening. MD to cancel order. Please contact CONTROL SYSTEMS DESIGNER if we can be of further assistance with this patient's care. Name: Kayley Thayer Date of : 1945 Age: 75 Date of Registration: 07/07/20 Speech Language Pathology Order Status:
--- NOTE | 2020-07-09 10:38 | P.CDIC_ITS ---
CDI Concurrent Query Service Date: 07/09/20 Documentation Clarification: Please clarify if you are treating a proba ble/suspected/likely or confirmed: Cachectic Malnourished, mild, moderate or severe Please specify if known or other Provider Response: Moderate Protein-Calorie Malnutrition PLEASE DO NOT DELETE/MODIFY EXISTING CONTENT Additional information is needed in order to code to the highest accuracy and appropriate Severity of Illness (SOI). Please clarify the information noted below in your progress notes and discharge summary. Risk Factors/Clinical Indicators/Treatments ED: Cachectic, chronically ill, BMI 19 - physically deconditioning No evidence of infection, anemia, but does show evidence of dehydration. IV fluids. CDS: Modesta Morris CCS, CDIS Contact Number: [phone] Please Review the information above and exercise your independent professional judgment in responding to the query. If you concur, pleas document in the PROGRESS NOTES and DISCHARGE SUMMARY. If you do not agree with the query, please document in the query above. THIS QUERY IS PART OF THE PERMANENT MEDICAL RECORD
[2020-07-09 11:16] VITALS: BP 93/58; PULSE 93; RESP 16; TEMP 35.9; O2SAT 94
[2020-07-09 11:52] VITALS: BMI 19.8
--- NOTE | 2020-07-09 12:49 | HO.PM.IMPN ---
Subjective Subjective Date of Service: 07/09/20 Interval History: the patient was seen and evaluated this morning Laying in bed, feels comfortable with no complaints Denies any fever, chills or shortness of breath No reported seizure activity or other overnight events. Systemic review: No fever, chills or weakness No chest pain, palpitation No shortness of breath or coughing No abdominal pain, nausea or vomiting No urinary symptoms No any rash or wounds Physical Exam Vital Signs: Vital Signs: Last Vital Signs Temp 96.7 F L 07/09/20 11:16 Pulse 93 07/09/20 11:16 Resp 16 07/09/20 11:16 BP 93/58 L 07/09/20 11:16 Pulse Ox 94 07/09/20 11:16 Body Mass Index 19.8 Constitutional : Alert, oriented to self but but check confused, not in distress Neck : Normal inspection, Sup per check confused ple Cardiovascular : RRR, S1 S2, no lower extremity edema Respiratory : Good bilateral air entry, no crackles, wheezes or rhonchi Gastrointestinal: soft, lax, Normal bowel sounds, Non tender Skin : Warm/Dry, No rash Neurological : Alert & oriented to self, right-sided hemiparesis Objective Data Current Medications Generic Name Dose Route Start Last Admin Trade Name Freq PRN Reason Stop Dose Admin Acetaminophen 650 mg 07/07/20 23:15 Acetaminophen 325 Mg Tablet PO Q6H PRN Pain, Mild (Pain Scale 1-3) Atorvastatin Calcium 20 mg 07/08/20 09:00 07/09/20 09:01 Atorvastatin Calcium 20 Mg Tablet PO 20 mg DAILY AYAN Administration Benzonatate 100 mg 07/07/20 23:34 Benzonatate 100 Mg Capsule PO TID PRN Cough Docusate Sodium 100 mg 07/08/20 17:20 Docusate Sodium 100 Mg Capsule PO DAILY PRN Constipation Heparin Sodium (Porcine) 5,000 unit 07/08/20 17:20 07/09/20 05:23 Heparin Sodium,Porcine 5,000 Unit/Ml Vial SUBCUT 5,000 unit Q12H AYAN Administration Levetiracetam 500 mg 07/09/20 21:00 Levetiracetam 250 Mg Tablet PO BID AYAN Ondansetron HCl 4 mg 07/07/20 23:15 Ondansetron Hcl 4 Mg/2 Ml Vial IVPUSH Q8H PRN Nausea and Vomiting Sodium Chloride 3 ml 12/27/20 17:20 07/09/20 08:50 0.9 % Sodium Chloride Flush 3 Ml Syringe IVFLUSH 3 ml QSHIFT AYAN Administration Labs CBC & Chem 7: 07/08/20 18:49 07/09/20 05:39 Assessment and Plan (1) Seizure: Status: Acute (2) AMS (altered mental status): Status: Acute (3) Advanced dementia: Status: Acute (4) Physical deconditioning: Status: Acute Assessment and Plan: This is a 75-year-old female who presents to the hospital with reported episodes of unresponsiveness possibly secondary to TIA for the past 1-2 weeks. Patient has a history of meningioma as well as lung cancer. Altered mentation Likely postictal event Improved today back to baseline Bedside screening for swallowing cleared her Started on diet Suspected seizure CT scan showing meningiomas and edema in the brain this is most likely to be seizure started on Keppra 500 b.i.d. Neurology input appreciated, to do MRI and EEG Moderate malnutrition Secondary to underlying medical problems, poor oral intake advised supplement hyperlipidemia Continue atorvastatin ground-glass opacity on CT chest no cough, afebrile, no evidence of infection Likely chronic changes DVT Heparin
--- NOTE | 2020-07-09 15:04 | P.DS_ITS ---
DS: Providers Provider Date of admission: 07/07/20 23:15 Primary care physician: Unknown Physician Consults: 07/08/20 17:20 Consult to Neurology Routine Consulting Provider: [facility] Reason for consultation: Seizure versus stroke Has provider been notified: No DS: Diagnosis Discharge Diagnosis (1) Seizure: Status: Acute (2) AMS (altered mental status): Status: Acute (3) Advanced dementia: Status: Acute (4) Physical deconditioning: Status: Acute DS: Medications Discharge Medications Home Medications: Home Medications Medication Instructions Recorded Confirmed acetaminophen 650 mg PO Q6H PRN 07/07/20 07/07/20 atorvastatin 20 mg PO DAILY 07/07/20 07/07/20 codeine-guaifenesin 5 ml PO 07/07/20 Previous Rx's Medication Instructions Recorded levetiracetam [Roweepra] 500 mg PO Q12H #60 tab 07/09/20 DS: Summary Hospital Course Hospital Course: admission note HPI This is a 75-year-old female with past medical history of brain meningioma was, herniated disc, high cholesterol, hypertension, lung cancer, TIA who presents to the hospital after her family have noticed for the past 1 to 2 weeks episodes of nonresponsiveness, she would be slumped over for few minutes not responding, not answering the questions. Today she did the same thing, became unresponsive not follow any commands, would not move upper body. Her family noticed that her speech son is at baseline and has chronic right-sided deficits. Patient only says yes or no to my questions and does not really give good history. Therefore history is mostly obtained from ED physician. On arrival to the ED patient's heart rate is 116, temp of 98.0?, blood pressure 135/36, satting 95% on room air Labs are significant for WBC count 10.6, hemoglobin of 14, hematocrit of 44%, PT of 12.1, INR of 1.0, sodium 130, potassium 5.1, BUN of 24, creatinine of 1.07, TSH of 0.29, negative UA, COVID-[address] shows significant limited exam due to patient's motion artifact and lack of IV but small focus of ground-glass opacification within the inferior segment of the lingula Head CT shows no acute abnormality, redemonstration of low attenuating fluid in the white matter tract left parietal occipital lobe unchanged since CT scan of 2019, she has 2 left-sided meningioma since 2019 I am unable to get complete past medical history from patient as she is not really answering my questions appropriately Past medical history: Meningiomas, herniated disc, high cholesterol, hypertension, lung cancer, TIA Social history appears to be living with her family, no reported tobacco alcohol or illicit drugs Hospital course The patient was admitted for evaluation of episodes of altered mentation and unresponsive. CT scan of the brain was consistent with chronic changes but no acute findings. Given the story reported by the family the was higher concern of seizure activity. The patient was started on IV Keppra after discussing with Neurology on-call. Her mental status improved back to baseline. Evaluated by Neurology who recommended MRI of the brain and EEG. The patient was unable to tolerate any of the studies and refused to finish them. Discussed with her healthcare proxy who agreed to discharge her back home on Keppra for treatment of seizure with visiting nurses to evaluate the patient for palliative care or hospice. Time Spent with Patient Time attestation: Total time spent providing and/or coordinating discharge services: Physical Exam Vital Signs: Vital Signs: Last Vital Signs Temp 96.7 F L 07/09/20 11:16 Pulse 93 07/09/20 11:16 Resp 16 07/09/20 11:16 BP 93/58 L 07/09/20 11:16 Pulse Ox 94 07/09/20 11:16 Body Mass Index 19.8 Constitutional : Alert, disoriented and confused, not in distress Neck : Normal inspection, Supple Cardiovascular : RRR, S1 S2, no lower extremity edema Respiratory : Good bilateral air entry, no crackles, wheezes or rhonchi Gastrointestinal: soft, lax, Normal bowel sounds, Non tender Skin : Warm/Dry, No rash Neurological : Alert & oriented to self, right-sided hemiparesis DS: Data Data Completed and Pending Labs on day of discharge: 07/07/20 20:56 CT head for stroke Stat 07/07/20 20:58 Prothrombin Time Whole Bld POC Routine ~PT, ~INR - [facility]ag Clinic Routine 07/07/20 20:59 Glucose, Whole Blood Routine 07/07/20 21:19 ECG 12 lead EKG Stat EKG Documentation DIRECTED XR chest 1V Stat 07/07/20 21:28 Comprehensive Met. Panel Stat Free T4 (Free Thyroxine) Stat Lactic Acid Stat Partial Thromboplastin Time Stat Prothrombin Time INR Stat TSH reflex Free T4 Stat Troponin-I High Sensitivity Stat 07/07/20 21:40 Complete Blood Count Auto Diff Stat 07/07/20 21:47 COVID-19 ID NOW ([facility]) Stat UA CC w/rflx Micro + Cult Stat 07/07/20 22:14 0.9 % Sodium Chloride [Ns] 500 ml IV 500 mls/hr 07/07/20 22:52 levETIRAcetam [Keppra] 500 mg 0.9 % Sodium Chloride [Ns] 100 ml IV ONCE 07/07/20 23:11 Code Status Routine Transfer Order Routine 07/07/20 23:21 levETIRAcetam [Keppra] 500 mg IV .STK-MED ONE 07/07/20 23:44 CT chest wo con Stat 07/08/20 09:00 levETIRAcetam [Keppra] 250 mg PO BID 07/08/20 Breakfast NPO Diet Regular Diet 07/08/20 18:49 Basic Metabolic Panel Routine Complete Blood Count Auto Diff Routine SLIDE REVIEW Routine 07/09/20 02:50 hydrALAZINE HCl [Apresoline] 5 mg IVPUSH Q6H PRN 07/09/20 05:39 Basic Metabolic Panel DAILY@0600 Laboratory Last Values WBC 10.1 X10*3/uL (4.8-10.8) 07/08/20 18:49 RBC 4.56 X10*6/uL (4.20-5.50) 07/08/20 18:49 Hgb 14.5 g/dl (12.0-16.0) 07/08/20 18:49 Hct 44.7 % (37-47) 07/08/20 18:49 MCV 98.0 fL (80-98) 07/08/20 18:49 MCH 31.8 pg (27.0-33.0) 07/08/20 18:49 MCHC 32.4 g/dl (31.0-35.0) 07/08/20 18:49 RDW 12.8 % (11.0-16.0) 07/08/20 18:49 Plt Count 388 X10*3/uL (160-400) 07/08/20 18:49 MPV 10.4 fL (9.4-12.3) 07/08/20 18:49 Immature Gran % (Auto) 0.5 % (0.0-0.4) H 07/08/20 18:49 Neut % (Auto) 85.7 % (45-73) H 07/08/20 18:49 Lymph % (Auto) 5.6 % (20-40) L 07/08/20 18:49 Dillon % (Auto) 7.8 % (2-11) 07/08/20 18:49 Eos % (Auto) 0.2 % (0-4) 07/08/20 18:49 Baso % (Auto) 0.2 % (0-2) 07/08/20 18:49 Lymph # (Auto) 0.6 X10*3/uL (1.2-4.9) L 07/08/20 18:49 Dillon # (Auto) 0.8 X10*3/uL (0.1-1.2) 07/08/20 18:49 Eos # (Auto) 0.0 X10*3/uL (0.0-0.4) 07/08/20 18:49 Baso # (Auto) 0.0 X10*3/uL (0.0-0.2) 07/08/20 18:49 Abs Immat Gran (auto) 0.05 X10*3/uL (0.00-0.03) H 07/08/20 18:49 Absolute Neuts (auto) 8.7 X10*3/uL (2.0-8.3) H 07/08/20 18:49 Absolute Nucleated RBC 0.000 X10*3/uL (0.0-0.012) 07/08/20 18:49 Nucleated RBC % (auto) 0.0 /100WBC (0.0-0.2) 07/08/20 18:49 Smear Tech's Comments VERIFIED 07/08/20 18:49 PT 12.1 SEC (10.8-13.0) 07/07/20 21:28 Whole Blood PT 11.3 sec (11.1-13.5) 07/07/20 20:58 INR 1.0 (0.9-1.1) 07/07/20 21:28 Whole Blood INR 0.9 (0.9-1.1) 07/07/20 20:58 APTT 34.4 SEC (24.1-38.0) 07/07/20 21:28 Sodium 135 mmol/L (135-145) 07/09/20 05:39 Potassium 4.5 mmol/l (3.3-5.1) 07/09/20 05:39 Chloride 98 mmol/L (96-108) 07/09/20 05:39 Carbon Dioxide 26 mmol/L (22-29) 07/09/20 05:39 Anion Gap 16 (12-20) 07/09/20 05:39 BUN 14 mg/dL (9-16) 07/09/20 05:39 Creatinine 0.71 mg/dL (0.5-1.4) 07/09/20 05:39 Estim Creat Clear Calc 61.9 07/09/20 05:39 Estimated GFR > 60 07/09/20 05:39 POC Glucose 102 mg/dL (60-115) 07/07/20 20:59 Random Glucose 90 mg/dL (60-115) D 07/09/20 05:39 Lactic Acid 1.7 mmol/L (0.5-2.0) 07/07/20 21:28 Calcium 8.8 mg/dL (8.4-10.2) 07/09/20 05:39 Total Bilirubin 0.3 mg/dL (0.0-1.0) 07/07/20 21:28 AST 20 U/L (5-31) 07/07/20 21:28 ALT 18 U/L (0-31) 07/07/20 21:28 Alkaline Phosphatase 99 U/L (39-117) 07/07/20 21:28 Troponin I High Sens < 3.5 ng/L (<3.5-17.0) 07/07/20 21:28 Total Protein 7.5 g/dL (6.5-8.0) 07/07/20 21:28 Albumin 4.0 g/dL (3.5-5.0) 07/07/20 21:28 TSH 0.29 mIU/mL (0.32-4.0) L 07/07/20 21:28 Free T4 0.96 ng/dL (0.71-1.85) 07/07/20 21:28 Urine Color YELLOW 07/07/20 21:47 Urine Appearance CLEAR 07/07/20 21:47 Urine pH 5.5 (5.0-8.0) 07/07/20 21:47 Ur Specific Russell >= 1.030 (1.005-1.025) H 07/07/20 21:47 Urine Protein NEG MG/DL (NEG-TRACE) 07/07/20 21:47 Urine Glucose (UA) NEG MG/DL (NEG) 07/07/20 21:47 Urine Ketones 5 MG/DL (NEG) 07/07/20 21:47 Urine Blood NEG (NEG) 07/07/20 21:47 Urine Nitrite NEG (NEG) 07/07/20 21:47 Ur Leukocyte Esterase NEG (NEG) 07/07/20 21:47 COVID-19 (ROBERTO) Negative (Negative) 07/07/20 21:47 COVID-19 Clin Com See Note 07/07/20 21:47 Discharge Plan Discharge Patient Disposition: Home, Self-Care Referrals: Physician,Unknown [Primary Care Provider] - Discharge Medications: New levetiracetam [Roweepra] 500 mg tablet 500 mg PO Q12H Qty: 60 RF: 2 Continued atorvastatin 20 mg tablet 20 mg PO DAILY RF: 0 acetaminophen 650 mg Tablet 650 mg PO Q6H PRN (Reason: Back Pain) RF: 0 codeine-guaifenesin 10-100 mg/5 mL liquid 5 ml PO RF: 0 Discharge Orders: Discharge Order (Routine); Ordered 07/09/20 Ordered By: Ronaldo Cantu Diet: advance to usual diet Activity on Discharge: As tolerated Visit Report Forms: Patient Portal Discharge page Care Plan Goals: Read below Health Concerns: Read below Plan of Treatment: You were admitted to the hospital for evaluation of episodes of altered mentation and unresponsive. CT scan of the brain showed no acute changes and stable previous abnormalities including hemangiomas with no change in size. You were started on seizure medication with good response as your mentation improved back to baseline. You were evaluated by neurologist who recommended to continue seizure treatment as the most likely diagnosis. You were unable to tolerate EEG or MRI. Discussed with your healthcare proxy with decision to discharge home on seizure medication. Visiting nurses to evaluate palliative care\hospice measures
--- NOTE | 2020-07-09 15:23 | MHC.CM.PN ---
pt dcd with resumption of private help 24 hrs a day and a new referral to [facility] for hospice imformational which will be done at home
[2020-07-09 15:40] VITALS: BP 121/67; PULSE 89; RESP 16; TEMP 36.7; O2SAT 98
== END 2020-07-09 16:11 | disposition home health service (06) | DRG 101 ==
LOC: HO.ED 23:41 → HO.IMC 07-08 16:33
PROVIDERS: Admitting Provider Internal Medicine; Emergency Provider Student in an Organized Health Care Education/Training Program; Visit Provider Student in an Organized Health Care Education/Training Program
DX: R56.9 Unspecified convulsions (principal); E44.0 Moderate protein-calorie malnutrition; Z68.1 Body mass index [BMI] 19.9 or less, adult; E78.5 Hyperlipidemia, unspecified; F03.90 Unspecified dementia, unspecified severity, without behavioral disturbance, psychotic disturbance, mood disturbance, and anxiety; Z20.828 Contact with and (suspected) exposure to other viral communicable diseases; Z79.891 Long term (current) use of opiate analgesic; Z79.899 Other long term (current) drug therapy
CPT/HCPCS: 36415; 70450; 71045; 71250; 80048; 80053; 81003; 82947; 83605; 84439; 84443; 84484; 85025; 85610; 85730; 87635; 93005; 96361; 96374; 99285; C9803; J1953; U0003